=== PATIENT | female | born 1965 | race Caucasian/White ===

== ENCOUNTER 2016-10-03 06:47 | Day surgery (SDC) | payer BC, OTHER ==
[~2016-10-03 06:47] MED LIST: ACETAMINOPHEN 500 MG TABLET PO PRN; MAG HYDROX/ALUMINUM HYD/SIMETH 30 ML UDC PO PRN; MAGNESIUM HYDROXIDE 30 ML UDC PO PRN; ONDANSETRON HCL/PF 2 MG/ML VIAL IV PRN; PROMETHAZINE HCL 25 MG in DEXTROSE 5 % IN WATER 50 ML IV PRN; RINGERS SOLUTION,LACTATED 1,000 ML IV PRN; ROPIVACAINE HCL/PF 40 MG in NORMAL SALINE 16 ML IJ PRN; ZOLPIDEM TARTRATE 5 MG TABLET PO PRN; ceFAZolin SODIUM 1 GM VIAL IV PRN; diphenhydrAMINE HCL 50 MG/ML VIAL IV PRN
--- OUTSIDE RECORDS SUMMARY | 2016-10-03 06:52 | XMS REPORT | Continuity of Care Document ---
:1965 Author Organization [facility] ([facility]) Address [place] [address] Phone [phone] Care Team Providers Name Role Phone Unavailable Primary Care Provider Unavailable Source Comments This disclosure is being made pursuant to the Care Everywhere program, applicable federal and state laws, and may not contain all informaitonavailable regarding this patient.[facility] ([facility]) Active Allergies and Adverse Reactions Not on File Current Medications Not on file Active Problems Not on file Social History Tobacco Use Types Packs/Day Years Used Date Never Assessed Plan of Care Health Maintenance Due Date Last Done Comments Hepatitis B Vaccine (1 of 3 - Primary Series) 1965 Tdap Vaccine 1977 Lipid Disorder Screening 1984 MMR Vaccine 1984 Td Vaccine 1984 Cervical Cancer Screening 1996 Mammogram 2006 Influenza Vaccine: Seasonal (#1) 02/19/2016 Colonoscopy 06/06/2016 Results from Last 3 Months Not on file
[2016-10-03] MEDS ORDERED: DEXTROSE 5%-0.5 NORMAL SALINE 1,000 ML IV ONE (07:28)
[2016-10-03] MEDS ORDERED: [UNRECOGNIZED DRUG - OTHER] IV ONE (07:45)
[2016-10-03] MEDS ORDERED: DEXTROSE 5% IV ONE (07:45)
[2016-10-03] MEDS ORDERED: BUPIVACAINE HCL/EPINEPHRINE 50 ML VIAL IJ ONE ×2 (08:05)
[2016-10-03] MEDS ORDERED: RINGERS SOLUTION,LACTATED 1,000 ML IV ONE (08:50)
--- NOTE | 2016-10-03 08:56 | OR ---
Operative Report - Dictated Report Narrative: Date: 10/03/2016 Physician: Bautista Akers M.D. 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 Physical exam and diagnostic imaging were consistent with these complaints and concern for medial meniscal pathology. Conservative measures have failed including, but not limited to, passage of time, activity modification, medications, and injections. The risks, benefits, and alternatives were discussed in clinic. The risks being , bleeding, infection, blood clots, nerve, tendon, ligament, blood vessel injury, persistent pain, arthrosis, need for additional procedures, and persistent symptoms. Consent was obtained in the clinic. Procedure: After marking the correct extremity in the preoperative holding area, a timeout was performed in the operating room. IV antibiotics consisting of 2 g of Ancef were administered prior to the procedure. A well-padded tourniquet was applied to the operative upper thigh. The leg was prepped and draped in a standard sterile fashion. 0.5% Marcaine with epinephrine was infused into the projected portal sites as well as the intra-articular space. A henry incision was made for inferior lateral portal. A blunt trocar and cannula was introduced into the knee. The suprapatellar pouch revealed small floating debris. The medial patella facet showed grade 3 chondral changes. The lateral patella facet showed grade 1 and grade 2 chondral changes. The trochlea showed rate 2 and grade 3 chondral changes with approximately 1 x 1 cm full-thickness defect at the base of the groove. The medial gutter revealed no loose bodies. The medial joint space was then entered utilizing a lateral post and valgus stress. A spinal needle was utilized for guidance into placement of an anterior medial portal. This was placed just superior to the medial meniscus ensuring that we could reach the posterior aspect of the medial joint space. A henry incision was made in the site, and the probe was introduced to the knee. The medial joint space was examined, and the medial femoral condyle showed extensive grade 3 chondral changes with several loose chondral flaps. The medial tibial plateau showed extensive grade 2 chondral changes. The medial meniscus demonstrated a partial radial tear adjacent to the posterior root. The notch was then examined, and the ACL was noted to be intact. The PCL was noted to be intact. The lateral joint space was then examined using a varus force in the figure 4 position. Lateral femoral condyle showed minimal degenerative changes. Lateral tibial plateau showed grade 1 and mild grade 2 chondral changes. The lateral meniscus showed no pathology. The lateral gutter showed no loose bodies. Having identified the surgical pathology, a series of biters and alejandro were utilized in order to debride the medial meniscus, medial femoral condyle, patella, and femoral trochlea. Once it was felt that we adequately addressed the pathology, the knee was thoroughly irrigated. The fluid was evacuated ensuring that we have removed all meniscal, chondral, and any other loose bodies. A final evaluation of the joint showed no additional pathology. The fluid was then evacuated of the knee, and the trocar and camera were removed from the joint. The wounds were closed with interrupted nylon after placing 20 mL of 0.2% ropivacaine into the joint. Dressings consisting of Xeroform, 4 x 4, ABD, soft roll, and an Jamal were applied. All sponge, needle, blade, and instrument counts were correct prior to closing the wounds. The patient was awoken and transferred to the post- anesthesia care unit in stable condition.
[2016-10-03] MEDS ORDERED: HYDROcodone/ACETAMINOPHEN 1 EACH TABLET PO PRN (09:29)
[2016-10-03 10:17] VITALS: BP 142/88
[2016-10-03] MEDS ORDERED: SENNOSIDES/DOCUSATE SODIUM 1 TAB TABLET PO SCH (21:00)
== END 2016-10-03 06:48 | disposition home or self-care (01) ==
LOC: AMB 06:47
PROVIDERS: ATTEND Orthopaedic Surgery
PROC: 0SBD4ZZ Excision of Left Knee Joint, Percutaneous Endoscopic Approach (ICD-10-PCS; principal; 2016-10-03 08:00)
DX: M23.204 Derangement of unspecified medial meniscus due to old tear or injury, left knee (principal); M17.12 Unilateral primary osteoarthritis, left knee; E11.9 Type 2 diabetes mellitus without complications; E03.9 Hypothyroidism, unspecified; F41.1 Generalized anxiety disorder; E66.9 Obesity, unspecified; Z68.30 Body mass index [BMI] 30.0-30.9, adult

== ENCOUNTER 2017-02-19 08:33 | Emergency (ER) | payer BC, OTHER ==
[2017-02-19] MEDS ORDERED: DEXTROSE 50%-WATER 50 ML SYRG ONE (08:46)
[2017-02-19] MEDS ORDERED: DEXTROSE 50%-WATER 50 ML SYRG IV ONE (08:47)
--- OUTSIDE RECORDS SUMMARY | 2017-02-19 09:01 | XMS REPORT | Summary of Care ---
:1965 Author Organization [facility] Care Team Providers Name Role Phone Vik Doherty Primary Care Physician Encounter Date(s): 01/16/17 - 01/16/[address] [id number] Discharge Disposition: Discharged to Home or Self Care Attending Physician: Torrey Nunez MD Admitting Physician: Torrey Nunez MD Vital Signs No data available for this section Problem List No data available for this section Allergies, Adverse Reactions, Alerts No Known Allergies Medications ALPRAZolam 0.5 mg oral tablet 1 tab(s), Oral, TID, PRN for anxiety, 0 Refill(s), Start Date: 01/01/17 15:07: 00 CDT Start Date: 01/01/17 Status: OrderedLantus Solostar Pen 100 units/mL subcutaneous solution 10 units, Subcutaneous, Daily, # 3 mL, 0 Refill(s), Start Date: 01/01/17 15:07: 00 CDT Start Date: 01/01/17 Status: Orderedlevothyroxine 137 mcg (0.137 mg) oral tablet 1 tab(s), Oral, Daily, # 30 tab(s), 0 Refill(s), Start Date: 01/01/17 15:07:00 CDT Start Date: 01/01/17 Status: OrderedmetFORMIN 1000 mg oral tablet 1 tab(s), Oral, BID, # 180 tab(s), 0 Refill(s), Start Date: 01/01/17 15:08:00 CDT Start Date: 01/01/17 Status: Orderedsertraline 50 mg oral tablet 1 tab(s), Oral, Daily, # 30 tab(s), 0 Refill(s), Start Date: 01/01/17 15:07:00 CDT Start Date: 01/01/17 Status: OrderedtraMADol 50 mg oral tablet 1 tab(s), Oral, q12hr, PRN as needed for pain, 0 Refill(s), Start Date: 15:06:00 CDT Start Date: 01/01/17 Status: Ordered Results Patient Viewable Results Most recent to oldest [Reference Range]: 1 UA Color Colorless *NA* (01/16/17 2:50 PM) Urine Clarity Clear *NA* (01/16/17 2:50 PM) Specific [address] [1.000-1.060] 1.008 (01/16/17 2:50 PM) Urine pH [5-8] 5 (01/16/17 2:50 PM) Ketones Negative (01/16/17 2:50 PM) Bilirubin [Negative] Negative (01/16/17 2:50 PM) Urine Protein [Negative] Negative (01/16/17 2:50 PM) Glucose [Negative] 1+ *ABN* (01/16/17 2:50 PM) Urine HGB [Negative] Negative (01/16/17 2:50 PM) Urobilinogen <2.0 (01/16/17 2:50 PM) Nitrite [Negative] Negative (01/16/17 2:50 PM) Leuk Esterase [Negative] Negative (01/16/17 2:50 PM) UA Ascorbic Acid [Negative] Negative (01/16/17 2:50 PM) Urine WBC [0-5] 0-5 (01/16/17 2:50 PM) Urine RBC [0-2] 0-2 (01/16/17 2:50 PM) Squamous Epi [0-5] None Seen (01/16/17 2:50 PM) Immunizations No data available for this section Procedures Procedure Date Related Diagnosis Body Site Arthroscopy of knee 2017 Partial hysterectomy 2015 Laparoscopic cholecystectomy 2014 Social History No data available for this section Assessment and Plan No data available for this section
--- OUTSIDE RECORDS SUMMARY | 2017-02-19 09:01 | XMS REPORT | Summary of Care ---
:1965 Author Organization [facility] Address [address] [place] [address] Care Team Providers Name Role Phone Vik Doherty Primary Care Physician Encounter Date(s): 01/16/17 - 01/16/17 [facility], [address] [place], [place] [address] Discharge Diagnosis: Other specified disorders of urethra Discharge Diagnosis: Incomplete emptying of bladder Discharge Disposition: 01 Discharged to Home or Self Care Attending Physician: Torrey Nunez MD Referring Physician: Torrey Nunez MD Vital Signs Most recent to oldest [Reference Range]: 1 Temperature Temporal Artery [36.0-38.0 DegC] 36.3 DegC (01/16/17 2:31 PM) Peripheral Pulse Rate [60-100 bpm] 81 bpm (01/16/17 2:31 PM) Blood Pressure [90-130/60-90 mmHg] 129/82mmHg (01/16/17 2:31 PM) Mean Arterial Pressure, Cuff 98 mmHg (01/16/17 2:31 PM) Most recent to oldest [Reference Range]: 1 Height/Length Measured 168 cm (01/16/17 2:31 PM) Weight Dosing 80.10 kg1 (01/16/17 2:33 PM) Weight Measured 80.1 kg (01/16/17 2:31 PM) BSA Measured 1.9 m2 (01/16/17 2:31 PM) Body Mass Index Measured 28.38 kg/m2 (01/16/17 2:31 PM) 1Result Comment: This result was because the dosing weight was either not entered or it is>30 days old. This result is based off: Weight Measured January 16, 2017 14:31:00 CDT by Lexy Merlin, RN Problem List No data available for this [...] CDT Start Date: 01/01/17 Status: Ordered Results No data available for this section Immunizations No data available for this section Procedures Procedure Date Related Diagnosis Body Site Arthroscopy of knee 2017 Partial hysterectomy 2016 Laparoscopic cholecystectomy 2014 Social History No data available for this section Assessment and Plan No data available for this section
--- OUTSIDE RECORDS SUMMARY | 2017-02-19 09:02 | XMS REPORT | Summary of Care ---
:1965 Author Organization [facility] Address [address] [place] [address] Care Team Providers Name Role Phone Vik Doherty Primary Care Physician Encounter Date(s): 01/01/17 - 01/01/17 [facility], [address] [place], [place] [address] Discharge Diagnosis: History of kidney stones Discharge Disposition: 01 Discharged to Home or Self Care Attending Physician: Torrey Nunez MD Referring Physician: Torrey Nunez MD Vital Signs Most recent to oldest [Reference Range]: 1 Temperature Temporal Artery [36.0-38.0 DegC] 36.4 DegC (01/01/17 2:58 PM) Peripheral Pulse Rate [60-100 bpm] 87 bpm (01/01/17 2:58 PM) Blood Pressure [90-130/60-90 mmHg] 161/83mmHg *HI* (01/01/17 2:58 PM) Mean Arterial Pressure, Cuff 109 mmHg (01/01/17 2:58 PM) Most recent to oldest [Reference Range]: 1 Height/Length Measured 168 cm (01/01/17 2:58 PM) Weight Dosing 81.80 kg1 (01/01/17 3:10 PM) Weight Measured 81.8 kg (01/01/17 2:58 PM) BSA Measured 1.92 m2 (01/01/17 2:58 PM) Body Mass Index Measured 28.98 kg/m2 (01/01/17 2:58 PM) 1Result Comment: This result was because the dosing weight was either not entered or it is>30 days old. This result is based off: Weight Measured January 01, 2017 14:58:00 CDT by Lexy Boyer RN Problem List No data available for [...]
--- NOTE | 2017-02-19 09:09 | ERNOTE ---
Medical Problem HPI - General Time Seen by Provider: 02/19/17 08:43 Source: patient, family Exam Limitations: no limitations - Immun/Allergies/Home Medications Immunizations: IMMUNIZATION HX Immunizations Up to Date Yes History of Influenza Vaccine Yes Hx Pneumococcal Vaccination No Allergies/Adverse Reactions: Allergies acetaminophen [From Percocet] Adverse Reaction (Mild, Verified 10/03/16 07:12) ITCHING HEAD TO TOE fluticasone propionate [From Flonase] Adverse Reaction (Mild, Verified 10/03/16 07:12) BLISTERS oxycodone HCl [From Percocet] Adverse Reaction (Mild, Verified 10/03/16 07:12) ITCHING HEAD TO TOE Home Medications: HOME MEDICATIONS ALPRAZolam [Xanax] 0.5 mg PO TID PRN 04/20/15 [Last Taken Unknown] Blood Sugar Diagnostic, Drum [Accu-Chek Compact] 1 each MC BID 04/20/15 [Last Taken Unknown] Sertraline HCl [Zoloft] 50 mg PO DAILY 04/20/15 [Last Taken Unknown] Insulin Glargine,Hum.rec.anlog [Lantus Solostar] 25 unit SQ HS 09/23/16 [Last Taken Unknown] Insulin Glargine,Hum.rec.anlog [Lantus Solostar] 30 unit SQ QAM 09/23/16 [Last Taken Unknown] Levothyroxine Sodium [Synthroid] 137 mcg PO DAILY 09/23/16 [Last Taken Unknown] Multivitamins [Multivitamin Chante] 1 cap PO DAILY 09/23/16 [Last Taken Unknown] Naproxen [Naprosyn] 500 mg PO BID 09/23/16 [Last Taken Unknown] metFORMIN HCL [Glucophage] 1,000 mg PO BIDWM 09/23/16 [Last Taken Unknown] - History of Present History Narrative: Patient is a diabetic treated with lantus and oral medication. Recently she has had problems with her blood sugar running low. This morning she called her daughter and did not make sense on the phone. Her daughter came to her house and was not able to find her glucometer or any sugar containing food and brought her to the ER. Initially patient had difficulty expressing herself, denies pain, later states that she is not sure whether she took her insulin that morning, did not have breakfast yet. Date (Duration): 02/19/17 Review of Systems - Review of Systems Constitutional: Absent: recent illness, fever EYE: Absent: vision changes ENT: Absent: nose congestion, sore throat Respiratory: Absent: shortness of breath Cardiology: Absent: chest pain Gastrointestinal/Abdominal: Absent: nausea, vomiting, abdominal pain Genitourinary: Present: no symptoms reported Musculoskeletal: Absent: back pain, neck pain Skin: Absent: rash Neurological: Absent: headache, weakness, numbness - Patient's Past Medical History Patient History - Medical: Anxiety, Diabetes Type 2, Depression, Headache, Hypothyroidism, Other Patient History - Cardiac/Respiratory: No pertinent hx Patient History - Cancer: No Hx of Cancer Patient History - Surgical Procedures: Cholecystectomy, EGD, Hysterectomy, Tubal Ligation, T & A Patient History - Other: None - Family History Mother Family History - Medical: Diabetes Type 2 Insulin Dependent Family History - Cardiac/Respiratory: No pertinent hx Family History - Cancer: No pertinent family hx Father Family History - Medical: No pertinent hx, Other Family History - Cardiac/Respiratory: No pertinent hx Family History - Cancer: No pertinent family hx Paternal Aunts Family History - Medical: , No pertinent hx Family History - Cardiac/Respiratory: No pertinent hx Family History - Cancer: Breast - Social History Living Situations: spouse Abuse History: No History of abuse Psych History: Hx of Anxiety, Hx of Depression, Current tx/ever been on anti- depressants or anti-anxiety meds Alcohol Use: none Drug Use: none - Immunizations Immunizations Up to Date: Yes Hx Pneumococcal Vaccination: No History of Influenza Vaccine: Yes Physical Exam - Physical Exam General Appearance: Present: wd/wn, alert, no apparent distress Eye Exam: Normal inspection: bilateral, PERRL: bilateral, EOMI: bilateral Ears, Nose, Throat: Present: normal ENT inspection, normal pharynx Respiratory: Present: no respiratory distress, normal breath sounds, no accessory muscle use, lungs clear Cardiovascular/Chest: Present: regular rate, rhythm, no murmur Gastrointestinal/Abdominal: Present: nontender, nondistended, soft Neurological Exam: Present: alert, normal mood/affect, no motor/sensory deficits Skin Exam: Present: normal color, warm/dry ED Progress - Results and Orders Patient's Lab Results:: I have reviewed the patient's lab results. - Vital Signs Patient's Vital Signs:: I have reviewed the patient's vital signs. Vital Signs: Vital Signs 02/19/17 08:50 Pulse Rate 83 Respiratory 18 Rate Blood Pressure 151/88 O2 Sat by Pulse 100 Oximetry - Progress/Reassessment Progress Note-Subjective: 02/19/17 09:05 patient feeling better, glucose up discussed possibly running blood test, patient and family not interested as patient is feeling better and symptoms are explained by low glucose 02/19/17 09:46 patient feels back to normal, had sandwich discussed need to check glucose more often Departure - Departure Clinical Impression: Hypoglycemia Disposition: Home self-care Condition: Good Instructions: Hypoglycemia, [id number] Additional Instructions: make sure you check your glucose more often call Dr Doherty for follow up Referrals: Vik Doherty MD [Primary Care Provider] -
[2017-02-19 10:16] VITALS: BP 148/83
== END 2017-02-19 09:53 | disposition home or self-care (01) ==
LOC: ER 08:33
DX: E16.2 Hypoglycemia, unspecified (principal); E11.9 Type 2 diabetes mellitus without complications; E03.9 Hypothyroidism, unspecified; F41.8 Other specified anxiety disorders